=== PATIENT | female | born 1940 | race Caucasian/White ===

== ENCOUNTER → 2025-02-19 | Outpatient (CLI) | payer MEDICARE ==
[~2025-02-19] MED LIST: ACET-683 PO; AMLO-751 PO; AMLO1TAB24 PO; AMLO1TAB25 PO; ENOX60IN3 SC; HYDR-3490 PO; HYDR25TA87 PO; LOSA-528 PO; LOSA50TA28 PO; METO1TAB87 PO; TRAM50TA2 PO; WARF-58 PO; WARF4TAB52 PO
== END ==
LOC: M SOG 07:05
PROVIDERS: ATTEND Physician Assistant
DX: S72.001D Fracture of unspecified part of neck of right femur, subsequent encounter for closed fracture with routine healing (principal); X58.XXXD Exposure to other specified factors, subsequent encounter; Y92.9 Unspecified place or not applicable; Y93.9 Activity, unspecified; Y99.9 Unspecified external cause status

== ENCOUNTER 2025-02-22 12:16 | Inpatient (IN) | payer MEDICARE ==
[~2025-02-22] VITALS: Ht 157.5 cm; Wt 52.3 kg
[~2025-02-22 12:16] MED LIST changes: -AMLO-751 PO; -AMLO1TAB24 PO; -LOSA50TA28 PO; -TRAM50TA2 PO
[2025-02-22 14:53] LABS: BASO # 0.1 10^3/uL (0.0-0.2); BASO % 0.9 % (0.0-1.0); EOS # 0.2 10^3/uL (0.0-0.5); EOS % 2.7 % (0.0-3.0); LYMPH # 1.5 10^3/uL (1.5-5.0); LYMPH % 16.9 % (24.0-44.0); MONO # 0.7 10^3/uL (0.0-0.8); MONO % 8.6 % (2.0-8.0); NEUTROPHILS # 6.0 10^3/uL (1.5-8.5); NEUTROPHILS % 70.4 % (36.0-66.0); PLATELET COUNT, AUTOMATED 192 10^3/uL (150-450)
[2025-02-22 15:04] LABS: INR 2.89
[2025-02-22 15:24] LABS: CALCIUM LEVEL 10.3 MG/DL (8.3-10.6); CARBON DIOXIDE LEVEL 25.0 MMOL/L (20-31); CHLORIDE LEVEL 104.0 MMOL/L (98-107); CREATININE FOR GFR 0.95 MG/DL (0.55-1.30); GLOMERULAR FILTRATION RATE 59.1 (>32); POTASSIUM SERUM 4.7 MMOL/L (3.5-5.1); SODIUM LEVEL 143.0 MMOL/L (136-145)
[2025-02-22] MEDS: HYDROMORPHONE HCL 0.5 MG/0.5 ML SYRINGE IV PRN ×2 (16:55→17:47)
[2025-02-22] MEDS ORDERED: AMLO1TAB24 PO (17:16)
[2025-02-22] MEDS ORDERED: TRAM50TA2 PO (17:16)
[2025-02-22] MEDS ORDERED: HYDR25TA87 PO (17:16)
[2025-02-22] MEDS ORDERED: HYDR-3490 PO (17:16)
[2025-02-22] MEDS ORDERED: LOSA50TA28 PO (17:16)
[2025-02-22] MEDS ORDERED: ACET-683 PO (17:17)
[2025-02-22] MEDS ORDERED: HOME MED LIST COMPLETE! XX SCH (17:20)
[2025-02-22 17:30] VITALS: BP 142/73; TEMP 97.3; O2SAT 96
[2025-02-22 20:40] VITALS: BP 123/62; TEMP 97.5; O2SAT 94
[2025-02-22] MEDS: ACETAMINOPHEN *IV* 1,000 MG in IV 1 EA IV SCH (21:46)
[2025-02-22] MEDS: METHOCARBAMOL 1,000 MG/10 ML VIAL IV ONE (21:47)
[2025-02-23] MEDS ORDERED: AMLO-751 PO (05:40)
[2025-02-23 06:47] VITALS: BP 116/53; TEMP 96.8; O2SAT 95
[2025-02-23 08:00] VITALS: BP 115/50; TEMP 97.7; O2SAT 94
[2025-02-23 08:11] LABS: PLATELET COUNT, AUTOMATED 161 10^3/uL (150-450)
[2025-02-23 08:27] LABS: INR 2.33
[2025-02-23] MEDS: hydroCHLOROthiazide 25 MG TAB PO SCH (08:31)
[2025-02-23] MEDS: **hydrALAZINE HCL** 25 MG TAB PO SCH (08:31)
[2025-02-23] MEDS: MIRALAX *UNIT DOSE* 17 GM PACKET PO SCH (08:32)
[2025-02-23] MEDS: amLODIPine 10 MG TAB PO SCH (08:33)
[2025-02-23 08:45] LABS: CALCIUM LEVEL 9.5 MG/DL (8.3-10.6); CARBON DIOXIDE LEVEL 26.0 MMOL/L (20-31); CHLORIDE LEVEL 104.0 MMOL/L (98-107); CREATININE FOR GFR 0.86 MG/DL (0.55-1.30); GLOMERULAR FILTRATION RATE 66.6 (>32); POTASSIUM SERUM 4.3 MMOL/L (3.5-5.1); SODIUM LEVEL 142.0 MMOL/L (136-145)
[2025-02-23] MEDS: ENOXAPARIN 30 MG/0.3 ML SYRINGE (J1650 PER 10MG) SC SCH (08:51)
[2025-02-23] MEDS ORDERED: amLODIPine 5 MG TAB PO SCH (09:00)
[2025-02-23] MEDS ORDERED: ENOXAPARIN 40 MG/0.4 ML SYRINGE (J1650 PER 10MG) SC SCH (09:00)
[2025-02-23] MEDS: HYDROMORPHONE HCL 0.5 MG/0.5 ML SYRINGE IV PRN (11:32)
[2025-02-23 12:00] VITALS: BP 130/61; TEMP 97.7; O2SAT 93
[2025-02-23] MEDS: ONDANSETRON 4MG 2ML VIAL IV PRN (15:12)
[2025-02-23 16:00] VITALS: TEMP 97.5; O2SAT 96
[2025-02-23] MEDS: GABAPENTIN 100 MG CAP PO PRN (16:18)
[2025-02-23 20:17] VITALS: BP 118/60; TEMP 97.5; O2SAT 95
[2025-02-23] MEDS: LOSARTAN 50 MG TABLET PO SCH (21:36)
[2025-02-24 05:35] VITALS: BP 132/64; TEMP 97.5; O2SAT 95
[2025-02-24] MEDS: HYDROMORPHONE HCL 0.5 MG/0.5 ML SYRINGE IV PRN (06:21)
[2025-02-24 07:40] LABS: INR 2.25
[2025-02-24 08:00] VITALS: BP 129/65; TEMP 97.5; O2SAT 94
[2025-02-24] MEDS: SENNA 8.6 MG TAB PO PRN (10:24)
[2025-02-24] MEDS: BISACODYL 10 MG SUPP PR SCH (10:25)
[2025-02-24 12:00] VITALS: BP 139/63; TEMP 98.2; O2SAT 96
[2025-02-24 15:34] LABS: BASO # 0.1 10^3/uL (0.0-0.2); BASO % 0.9 % (0.0-1.0); EOS # 0.1 10^3/uL (0.0-0.5); EOS % 1.6 % (0.0-3.0); LYMPH # 1.4 10^3/uL (1.5-5.0); LYMPH % 16.7 % (24.0-44.0); MONO # 0.7 10^3/uL (0.0-0.8); MONO % 7.9 % (2.0-8.0); NEUTROPHILS # 6.3 10^3/uL (1.5-8.5); NEUTROPHILS % 72.6 % (36.0-66.0); PLATELET COUNT, AUTOMATED 172 10^3/uL (150-450)
[2025-02-24 16:00] VITALS: BP 135/63; TEMP 97.5; O2SAT 95
[2025-02-24 16:02] LABS: CALCIUM LEVEL 9.7 MG/DL (8.3-10.6); CARBON DIOXIDE LEVEL 29.0 MMOL/L (20-31); CHLORIDE LEVEL 102.0 MMOL/L (98-107); CREATININE FOR GFR 0.84 MG/DL (0.55-1.30); GLOMERULAR FILTRATION RATE 68.5 (>32); POTASSIUM SERUM 4.1 MMOL/L (3.5-5.1); SODIUM LEVEL 142.0 MMOL/L (136-145)
[2025-02-24 20:07] VITALS: BP 102/54; TEMP 97.5; O2SAT 94
[2025-02-24] MEDS: PANTOPRAZOLE 40MG VIAL IV SCH (21:38)
[2025-02-25 05:00] VITALS: BP 126/65; TEMP 97.3; O2SAT 95
[2025-02-25 07:55] LABS: PLATELET COUNT, AUTOMATED 179 10^3/uL (150-450)
[2025-02-25 08:00] VITALS: BP 126/63; TEMP 97.2; O2SAT 94
[2025-02-25 08:05] LABS: INR 1.97
[2025-02-25 09:39] VITALS: BP 115/55
[2025-02-25 12:00] VITALS: BP 112/56; TEMP 97.2; O2SAT 98
[2025-02-25 16:00] VITALS: BP 112/62; TEMP 97; O2SAT 96
[2025-02-25 19:54] VITALS: BP 113/55; TEMP 97.7; O2SAT 94
[2025-02-26 05:20] VITALS: BP 127/60; TEMP 97.7; O2SAT 94
[2025-02-26] MEDS ORDERED: MIDAZOLAM INJ 2 MG/2 ML VIAL As Ordered ONE (07:09)
[2025-02-26] MEDS ORDERED: dexAMETHasone 4 MG/ML 1 ML VIAL As Ordered ONE (07:16)
[2025-02-26] MEDS ORDERED: ONDANSETRON 4MG 2ML VIAL As Ordered ONE (07:16)
[2025-02-26] MEDS ORDERED: ACETAMINOPHEN 1000MG/100ML IV BAG As Ordered ONE (07:16)
[2025-02-26 07:44] LABS: PLATELET COUNT, AUTOMATED 158 10^3/uL (150-450)
[2025-02-26 08:01] LABS: INR 1.45
[2025-02-26] MEDS: ENOXAPARIN 30 MG/0.3 ML SYRINGE (J1650 PER 10MG) SC STA (09:37)
[2025-02-26] MEDS: GABAPENTIN 100 MG CAP PO SCH (10:50)
[2025-02-26 12:00] VITALS: BP 134/73; TEMP 97.3; O2SAT 94
[2025-02-26 16:00] VITALS: BP 125/66; TEMP 97.5; O2SAT 96
[2025-02-26 20:20] VITALS: BP 122/67; TEMP 97.5; O2SAT 94
[2025-02-27] VITALS (8 sets, daily range): BP systolic 101–120; BP diastolic 59–93; TEMP 96.6–97.7; O2SAT 91–97
[2025-02-27] MEDS: LR 1,000 ML IV SCH ×2 (00:15→17:00)
[2025-02-27 01:21] LABS: CALCIUM LEVEL 9.6 MG/DL (8.3-10.6); CARBON DIOXIDE LEVEL 26.0 MMOL/L (20-31); CHLORIDE LEVEL 103.0 MMOL/L (98-107); CREATININE FOR GFR 0.88 MG/DL (0.55-1.30); GLOMERULAR FILTRATION RATE 64.8 (>32); POTASSIUM SERUM 4.2 MMOL/L (3.5-5.1); SODIUM LEVEL 141.0 MMOL/L (136-145)
[2025-02-27] MEDS: ceFAZolin SODIUM 2 GM in DEXTROSE 5% (D5W) ADV/MINI-BAG 50 ML IV ONE (06:01)
[2025-02-27 06:43] LABS: INR 1.22
[2025-02-27] MEDS ORDERED: HYDROmorphone HCL 2 MG/ML 1 ML VIAL As Ordered ONE (12:00)
[2025-02-27] MEDS ORDERED: dexmedeTOMIDine (4 MCG/ML) 200 MCG/50 ML BTL As Ordered ONE (12:01)
[2025-02-27] MEDS ORDERED: LIDOCAINE 2% 100 MG/5 ML SDV (FOR ANES.) As Ordered ONE (12:01)
[2025-02-27] MEDS ORDERED: SUGAMMADEX SODIUM 500 MG/5 ML VIAL As Ordered ONE (12:01)
[2025-02-27] MEDS ORDERED: ROCURONIUM BROMIDE 50MG/5ML VIAL As Ordered ONE (12:01)
[2025-02-27] MEDS: KETOROLAC 30 MG/ML 1 ML VIAL As Ordered ONE (12:34)
[2025-02-27] MEDS: VANCOMYCIN 1000MG/20ML VIAL As Ordered ONE (12:34)
[2025-02-27] MEDS ORDERED: PHENYLephrine 500MCG 5ML (100MCG/ML) SYRINGE As Ordered ONE (14:01)
[2025-02-27] MEDS: TRANEXAMIC ACID 100 MG/ML 10ML VIAL As Ordered ONE (14:05)
[2025-02-27] MEDS ORDERED: ONDANSETRON 4MG 2ML VIAL IV PRN ×2 (16:50→17:00)
[2025-02-27] MEDS ORDERED: MORPHINE 10 MG/ML 1 ML VIAL IV PRN (17:00)
[2025-02-27] MEDS ORDERED: HYDROmorphone 2 MG TAB PO PRN (17:00)
[2025-02-27] MEDS ORDERED: WARFARIN SOD 5MG TAB PO SCH (17:00)
[2025-02-27] MEDS: HYDROMORPHONE HCL 0.5 MG/0.5 ML SYRINGE IV PRN (17:16)
[2025-02-27] MEDS: ACETAMINOPHEN *IV* 1,000 MG in IV 1 EA IV SCH (21:12)
[2025-02-27] MEDS: ceFAZolin SODIUM 2 GM in DEXTROSE 5% (D5W) ADV/MINI-BAG 50 ML IV SCH (22:28)
[2025-02-28 01:24] VITALS: BP 106/54; TEMP 97.2; O2SAT 94
[2025-02-28 06:00] VITALS: BP 107/54; TEMP 97.3; O2SAT 93
[2025-02-28 07:28] LABS: PLATELET COUNT, AUTOMATED 139 10^3/uL (150-450)
[2025-02-28 07:50] LABS: INR 1.21
[2025-02-28 08:00] VITALS: BP 122/65; TEMP 97.3; O2SAT 96
[2025-02-28] MEDS: ASCORBIC ACID 500 MG TAB PO SCH (08:26)
[2025-02-28] MEDS: ENOXAPARIN 60 MG/0.6 ML SYRINGE (J1650 PER 10MG) SC SCH (08:27)
[2025-02-28] MEDS: FERROUS SULFATE 325 MG TAB PO SCH (08:28)
[2025-02-28] MEDS: SENNA 8.6 MG TAB PO SCH (08:28)
[2025-02-28 12:00] VITALS: BP 112/65; TEMP 97.6; O2SAT 93
[2025-02-28] MEDS: WARFARIN SOD 5MG TAB PO SCH (16:19)
[2025-02-28 20:05] VITALS: BP 121/44; TEMP 97.5; O2SAT 93
[2025-03-01] VITALS (7 sets, daily range): BP systolic 100–114; BP diastolic 47–54; TEMP 97.2–97.7; O2SAT 91–96
[2025-03-01 07:17] LABS: PLATELET COUNT, AUTOMATED 119 10^3/uL (150-450)
[2025-03-01 07:27] LABS: INR 1.44
[2025-03-01] MEDS: ENOXAPARIN 30 MG/0.3 ML SYRINGE (J1650 PER 10MG) SC SCH (08:16)
[2025-03-01 09:44] LABS: BASO # 0.0 10^3/uL (0.0-0.2); BASO % 0.3 % (0.0-1.0); EOS # 0.1 10^3/uL (0.0-0.5); EOS % 0.6 % (0.0-3.0); LYMPH # 1.6 10^3/uL (1.5-5.0); LYMPH % 18.5 % (24.0-44.0); MONO # 0.8 10^3/uL (0.0-0.8); MONO % 9.2 % (2.0-8.0); NEUTROPHILS # 6.2 10^3/uL (1.5-8.5); NEUTROPHILS % 70.7 % (36.0-66.0); PLATELET COUNT, AUTOMATED 114 10^3/uL (150-450)
[2025-03-01 10:13] LABS: CALCIUM LEVEL 8.1 MG/DL (8.3-10.6); CARBON DIOXIDE LEVEL 27.0 MMOL/L (20-31); CHLORIDE LEVEL 107.0 MMOL/L (98-107); CREATININE FOR GFR 0.86 MG/DL (0.55-1.30); GLOMERULAR FILTRATION RATE 66.6 (>32); POTASSIUM SERUM 3.6 MMOL/L (3.5-5.1); SODIUM LEVEL 143.0 MMOL/L (136-145)
[2025-03-01 14:06] LABS: IRON (FE) 58.0 UG/DL (50-170); PERCENT SATURATION 29.3 % (13.2-45.0)
[2025-03-02] VITALS (14 sets, daily range): BP systolic 100–146; BP diastolic 52–64; TEMP 96.8–98.6; O2SAT 90–98
[2025-03-02 06:31] LABS: BASO # 0.0 10^3/uL (0.0-0.2); BASO % 0.5 % (0.0-1.0); EOS # 0.3 10^3/uL (0.0-0.5); EOS % 3.3 % (0.0-3.0); LYMPH # 1.9 10^3/uL (1.5-5.0); LYMPH % 21.7 % (24.0-44.0); MONO # 0.7 10^3/uL (0.0-0.8); MONO % 8.1 % (2.0-8.0); NEUTROPHILS # 5.7 10^3/uL (1.5-8.5); NEUTROPHILS % 65.4 % (36.0-66.0); PLATELET COUNT, AUTOMATED 147 10^3/uL (150-450)
[2025-03-02 06:43] LABS: INR 1.81
[2025-03-02 06:58] LABS: CALCIUM LEVEL 8.1 MG/DL (8.3-10.6); CARBON DIOXIDE LEVEL 29.0 MMOL/L (20-31); CHLORIDE LEVEL 107.0 MMOL/L (98-107); CREATININE FOR GFR 0.83 MG/DL (0.55-1.30); GLOMERULAR FILTRATION RATE 69.5 (>32); POTASSIUM SERUM 4.1 MMOL/L (3.5-5.1); SODIUM LEVEL 144.0 MMOL/L (136-145)
[2025-03-02] MEDS ORDERED: PERCOCET 5MG/325MG TAB PO PRN (13:30)
[2025-03-02] MEDS: PANTOPRAZOLE 40MG TAB PO ONE (23:04)
[2025-03-03 04:16] VITALS: BP 124/56; TEMP 97.5; O2SAT 93
[2025-03-03 06:40] LABS: BASO # 0.0 10^3/uL (0.0-0.2); BASO % 0.5 % (0.0-1.0); EOS # 0.4 10^3/uL (0.0-0.5); EOS % 4.7 % (0.0-3.0); LYMPH # 1.8 10^3/uL (1.5-5.0); LYMPH % 21.8 % (24.0-44.0); MONO # 0.8 10^3/uL (0.0-0.8); MONO % 9.8 % (2.0-8.0); NEUTROPHILS # 5.1 10^3/uL (1.5-8.5); NEUTROPHILS % 61.5 % (36.0-66.0); PLATELET COUNT, AUTOMATED 159 10^3/uL (150-450)
[2025-03-03 06:49] LABS: INR 2.3
[2025-03-03] MEDS ORDERED: ACETAMINOPHEN 500 MG TAB PO PRN (11:15)
[2025-03-03] MEDS ORDERED: WARFARIN SOD 3MG TAB PO SCH ×2 (11:15→17:00)
[2025-03-03] MEDS ORDERED: traMADol 50 MG TAB PO PRN (11:15)
[2025-03-03] MEDS: amLODIPine 10 MG TAB PO SCH (11:33)
[2025-03-03 12:00] VITALS: BP 121/68; TEMP 97.6; O2SAT 95
[2025-03-05] MEDS ORDERED: WARFARIN SOD 1MG TAB PO SCH (17:00)
== END 2025-03-03 12:55 | disposition home health service (06) | DRG 481 ==
LOC: M ED 12:16 → M ED INP 14:52 → M MS5PR 17:15
PROVIDERS: ADMIT Internal Medicine; ATTEND Internal Medicine
PROC: 0QQ60ZZ Repair Right Upper Femur, Open Approach (ICD-10-PCS; principal; 2025-02-28)
PROC: 0QP704Z Removal of Internal Fixation Device from Left Upper Femur, Open Approach (ICD-10-PCS; 2025-02-28)
PROC: 30233N1 Transfusion of Nonautologous Red Blood Cells into Peripheral Vein, Percutaneous Approach (ICD-10-PCS; 2025-03-02)
DX: M97.8XXA Periprosthetic fracture around other internal prosthetic joint, initial encounter (principal); E44.0 Moderate protein-calorie malnutrition; D62 Acute posthemorrhagic anemia; D68.2 Hereditary deficiency of other clotting factors; I48.91 Unspecified atrial fibrillation; I10 Essential (primary) hypertension; Z96.643 Presence of artificial hip joint, bilateral; Z86.718 Personal history of other venous thrombosis and embolism; Z79.01 Long term (current) use of anticoagulants; W18.30XA Fall on same level, unspecified, initial encounter; Y92.017 Garden or yard in single-family (private) house as the place of occurrence of the external cause; Z79.899 Other long term (current) drug therapy; K59.00 Constipation, unspecified

== ENCOUNTER → 2025-03-10 | Outpatient (CLI) | payer MEDICARE ==
[~2025-03-10] MED LIST changes: +AMLO-751 PO; +AMLO1TAB24 PO; +LOSA50TA28 PO; +TRAM50TA2 PO
== END ==
LOC: M SOG 13:16
PROVIDERS: ATTEND Neuromusculoskeletal Medicine, Sports Medicine
DX: T84.194A Other mechanical complication of internal fixation device of right femur, initial encounter (principal); Y83.1 Surgical operation with implant of artificial internal device as the cause of abnormal reaction of the patient, or of later complication, without mention of misadventure at the time of the procedure; Z96.643 Presence of artificial hip joint, bilateral

== ENCOUNTER → 2025-07-04 | Outpatient (REF) | payer MEDICARE | LOC: M LAB REF 17:00 | PROVIDERS: ATTEND Orthopaedic Surgery Hand Surgery | DX: T84.19 Other mechanical complication of internal fixation device of bones of limb (principal); L08.9 Local infection of the skin and subcutaneous tissue, unspecified ==

== ENCOUNTER → 2025-07-04 | Outpatient (CLI) | payer MEDICARE | LOC: M SOG 15:34 | PROVIDERS: ATTEND Orthopaedic Surgery Hand Surgery | DX: T84.19 Other mechanical complication of internal fixation device of bones of limb (principal); L08.9 Local infection of the skin and subcutaneous tissue, unspecified ==

== ENCOUNTER 2025-07-08 10:50 | Outpatient (CLI) | payer MEDICARE ==
[2025-07-08 10:35] VITALS: BP 116/74; O2SAT 95
== END 2025-07-08 12:00 | disposition home or self-care (01) ==
LOC: M INFU 10:50
PROVIDERS: ATTEND Internal Medicine Infectious Disease
DX: T84.50XA Infection and inflammatory reaction due to unspecified internal joint prosthesis, initial encounter (principal); Z88.5 Allergy status to narcotic agent

== ENCOUNTER → 2025-07-08 | Outpatient (CLI) | payer MEDICARE | LOC: M IRPRO 09:27 | PROVIDERS: ATTEND Neuromusculoskeletal Medicine, Sports Medicine | DX: T84.19 Other mechanical complication of internal fixation device of bones of limb (principal); L08.9 Local infection of the skin and subcutaneous tissue, unspecified; T84.50XA Infection and inflammatory reaction due to unspecified internal joint prosthesis, initial encounter; Z88.5 Allergy status to narcotic agent; Z53.9 Procedure and treatment not carried out, unspecified reason | CPT/HCPCS: 36569; 96365; C1751; J0878 ==